=== PATIENT | female | born 1960 | race Caucasian/White ===

== ENCOUNTER → 2017-02-11 | Outpatient (CLI) | payer BC ==
[~2017-02-11] MED LIST: NAPROXEN PO; VICODIN 5/500 T1 TAB PO
--- NOTE | ~2017-02-11 | CR63 ---
[facility]. [facility] A Service of [facility] & [facility] RADIOLOGY TEXT RESULTS PATIENT: FRANK CANTU LOCATION: [place] : 64 UNIT #: [id number] AGE: [address]: Darwin Smith SEX: F ORDER DR: [id number] [place] [id number] O MR#: [id number] Acc #: [id number] NAME: FRANK CANTU : 1960 SEX: F STUDY DATE/TIME: 02/11/2017 10:15 UNIT: [facility] ROOM: STUDY DESCRIPTION: CR Chest 2 View Attending Physician: Darwin Smith P.A.-C. Referring Physician: Darwin Smith P.A.-C. Ordering Physician: Physician Non-Staff Primary Care Physician: Pia Riley M.D. MEDICAL IMAGING REPORT This report is preliminary unless electronic signature is present. EXAM Chest PA and lateral 02/11/2017 HISTORY Cough for 1 week, psoriasis vulgaris, patient starting new medication for psoriasis. Smoking history for 10 years. FINDINGS The heart is normal in size. There is elevation right hemidiaphragm with atelectasis at the lung bases. The lungs are otherwise clear. There are no pleural effusions. IMPRESSION No active pulmonary disease. Dictated by... Lawrence Toth M.D. THIS IS AN ELECTRONICALLY VERIFIED REPORT Lawrence Toth M.D. at 02/14/2017 7:38 AM LALY/irma TD: 02/11/2017 19:04 JOB #: [id number] MEDICAL IMAGING REPORT Page 1 of 1
[2017-02-11 10:20] LABS: BASOPHIL# 0.1 X10e3 (0-0.3); BASOPHIL% 1.2 % (0-2.5); EOSINOPHIL# 0.1 X10e3 (0-0.7); EOSINOPHIL% 2.9 % (0.0-7.0); HEMATOCRIT 47.4 % (35.0-45.0); HEMOGLOBIN 15.7 gm/dL (12.0-16.0); LYMPHOCYTE# 1.5 X10e3 (1.0-3.5); LYMPHOCYTE% 34.7 % (17.0-45.0); MEAN CELL VOLUME 95.2 FL (83-96); MEAN CORPUSCULAR HEMOGLOBIN 31.6 PG (28-34); MEAN CORPUSCULAR HGB CONC 33.2 g/dL (30-36); MEAN PLATELET VOLUME 7.4 FL (6.5-11.5); MONOCYTE# 0.2 X10e3 (0-1.0); MONOCYTE% 5.4 % (3.0-12.0); NEUTROPHIL# 2.4 X10e3 (1.5-7.1); NEUTROPHIL% 55.8 % (40-75); PLATELET COUNT 171 X10e3 (140-420); RED BLOOD COUNT 4.98 X10e (3.90-5.30); RED CELL DISTRIBUTION WIDTH 12.9 % (11.0-15.5); WHITE BLOOD COUNT 4.4 X10e3 (4.0-10.5)
[2017-02-11 10:38] LABS: DIFF IND NO
[2017-02-11 10:47] LABS: ALBUMIN SERUM 3.5 g/dL (3.5-5.0); BILIRUBIN,TOTAL 0.9 mg/dL (0.2-2.0); BUN/CREATININE RATIO 13.75; CALCIUM SERUM 8.9 mg/dL (8.4-10.2); CREATININE SERUM 0.8 mg/dL (0.6-1.4); GLOM FILT RATE Estimated 83.1 mL/min (>60); POTASSIUM 4.6 mmol/L (3.5-5.1); PROTEIN TOTAL SERUM 7.2 g/dL (6.0-8.3)
[2017-02-14 21:44] LABS: NIL 0.06 IU/mL (()); QUANTIFERON NEGATIVE (Negative); TB AG-NIL <0.00 IU/mL (())
== END | disposition home or self-care (01) ==
LOC: SLAB 10:04
PROVIDERS: Physician Assistant
DX: L40.0 Psoriasis vulgaris (principal)
CPT/HCPCS: 36415; 71020; 80053; 85025; 86480

== ENCOUNTER → 2017-08-01 | Outpatient (CLI) | payer BC ==
--- NOTE | ~2017-08-01 | US6 ---
[facility] A Service of [facility] & [facility] RADIOLOGY TEXT RESULTS PATIENT: FRANK CANTU LOCATION: [place] : 64 UNIT #: [id number] AGE: [address]: Rosalie Thapa APRN SEX: F ORDER DR: [id number] [address] [address] [id number] O MR#: [id number] Acc #: [id number] NAME: FRANK CANTU : 1960 SEX: F STUDY DATE/TIME: 08/01/2017 8:21 UNIT: [facility] ROOM: STUDY DESCRIPTION: US Abdominal Limited Attending Physician: Rosalie Thapa A.P.R.N. Referring Physician: Rosalie Thapa A.P.R.N. Ordering Physician: Rosalie Thapa A.P.R.N. Primary Care Physician: Pia Riley M.D. MEDICAL IMAGING REPORT This report is preliminary unless electronic signature is present. EXAM Right upper quadrant ultrasound 08/01/2017 INDICATIONS Elevated liver enzymes in a 57-year-old female for 2 weeks, nausea 3 days. TECHNIQUE Sonographic imaging of the right upper quadrant was performed. No comparisons. FINDINGS Pancreas not well visualized or assessed. The liver has a mildly coarsened echotexture and measures up to 17.2 cm long axis. No focal liver mass, ascites or intrahepatic ductal dilatation. The gallbladder is sonographically unremarkable and no sonographic Forrester's sign was described by the technologist. Extrahepatic common bile duct measures approximately 2 mm. Right kidney measures 10.2 cm long axis and is nonobstructed. IMPRESSION 1. No ultrasound evidence of acute cholecystitis. 2. Mildly coarsened hepatic echotexture which may reflect an element of fatty infiltration. 3. The examination is otherwise negative. Pancreas not well visualized or assessed. Dictated by... Juan Thurman M.D. THIS IS AN ELECTRONICALLY VERIFIED REPORT Juan Thurman M.D. at 08/03/2017 3:24 PM [facility] A Service of [facility] & [facility] RADIOLOGY TEXT RESULTS PATIENT: FRANK CANTU LOCATION: [facility] #: [id number] : [birth year] UNIT #: [id number] AGE: [address]: Rosalie Thapa APRN SEX: F ORDER DR: Pipe TD: 08/01/2017 22:05 JOB #: [id number] MEDICAL IMAGING REPORT Page 1 of 1
== END | disposition home or self-care (01) ==
LOC: SGUS 08:21
DX: R74.8 Abnormal levels of other serum enzymes (principal); R93.2 Abnormal findings on diagnostic imaging of liver and biliary tract
CPT/HCPCS: 76705